=== PATIENT | male | born 1995 | race African-American/Black ===

== ENCOUNTER 2021-01-18 00:06 | Emergency (ER) | payer MEDICAID ==
[~2021-01-18] VITALS: Ht 185.4 cm; Wt 68.0 kg
[2021-01-18] MEDS ORDERED: OXYM30SP26 BOTHNSTRLS (02:25)
[2021-01-18 02:52] VITALS: BP 139/86
== END 2021-01-18 02:54 | disposition home or self-care (01) ==
LOC: ER 00:06
DX: S02.2XXA Fracture of nasal bones, initial encounter for closed fracture (principal); S06.9X0A Unspecified intracranial injury without loss of consciousness, initial encounter; R51.9 Headache, unspecified; R04.0 Epistaxis; F12.10 Cannabis abuse, uncomplicated; Y04.0XXA Assault by unarmed brawl or fight, initial encounter; Y93.89 Activity, other specified; Y92.89 Other specified places as the place of occurrence of the external cause; Y99.8 Other external cause status
CPT/HCPCS: 70486; 99285